=== PATIENT | female | born 1935 | race Caucasian/White ===

== ENCOUNTER 2021-09-08 22:41 | Emergency (ER) | payer MEDICARE, OTHER ==
[~2021-09-08] VITALS: Ht 152.4 cm; Wt 88.6 kg
[2021-09-08] MEDS ORDERED: IV NORMAL SALINE 1000 ML BAG IV ONE (23:15)
[2021-09-08 23:30] LABS: CREATININE 1.3 mg/dL (0.6-1.3); POTASSIUM 4.3 mmol/L (3.5-5.1)
[2021-09-08 23:31] LABS: HEMATOCRIT 34.7 % (31.2-41.9); MEAN CORPUSCULAR HEMOGLOBIN 27.9 uug (24.7-32.8); MEAN CORPUSCULAR VOLUME 84.9 fL (75.5-95.3); PLATELET COUNT (AUTO) 276 K/uL (179-408)
[2021-09-08 23:36] LABS: BILIRUBIN,DIRECT 0.1 mg/dL (0.0-0.2); BILIRUBIN,TOTAL 0.4 mg/dL (0.2-1.0); TOTAL PROTEIN, SERUM 6.7 g/dL (6.4-8.2)
[2021-09-09 00:25] LABS: *BILIRUBIN,URIN NEGATIVE (NEGATIVE); *COLOR,URINE YELLOW (YELLOW); *KETONES,URINE NEGATIVE (NEGATIVE); *UROBILINOGEN,URINE 0.2 E.U./dl (NORMAL); LEUKOCYTE ESTERASE ,URINE NEGATIVE (NEGATIVE); NITRITE, URINE NEGATIVE (NEGATIVE); PH,URINE 6.5 (5.0-8.0); UGLUCOSE NEGATIVE (NEGATIVE)
[2021-09-09 00:27] LABS: *BLOOD, URINE TRACE (NEGATIVE); *CLARITY,URINE HAZY (CLEAR)
[2021-09-09 00:54] LABS: BACTERIA,URINE MODERATE /HPF (NONE SEEN); RBC,URINE 0-3 /HPF (0-3); SQUAMOUS EPITHELIAL CELL,UR MODERATE /HPF (NONE SEEN); WBC,URINE 0-3 /HPF (0-3)
--- NOTE | 2021-09-09 01:30 | NUR ---
Patient refused to wagoner ct scan. Dr Paulson into re eval patient.
[2021-09-09] MEDS ORDERED: VANCOMYCIN 1G/D5W 200 ML PIGGYBACK IV ONE (02:15)
[2021-09-09] MEDS ORDERED: PIPERACILLIN SODIUM/TAZOBACTAM 4.5 G in IV DEXTROSE 5% 50 ML IV SCH (02:15)
--- NOTE | 2021-09-09 02:15 | NUR ---
Patient refused to be admitted , Dr Paulson into speak with patient and spoke to patient son Pedrito.
[2021-09-09] MEDS ORDERED: PIPERACILLIN/TAZO 4.5 GM VIAL IV ONE (02:18)
[2021-09-09] MEDS ORDERED: AMOX-430 PO (02:20)
[2021-09-09] MEDS ORDERED: AZIT250T13 PO (02:22)
[2021-09-09] MEDS ORDERED: VANCOMYCIN IV 200 ML ONE (02:57)
[2021-09-09] MEDS ORDERED: MAGNESIUM HYDROXIDE 30 ML LIQUID UDC PO PRN (03:45)
[2021-09-09] MEDS ORDERED: Z GUARD REMEDY PASTE 57 GM TUBE TOP PRN (03:45)
[2021-09-09] MEDS ORDERED: ACETAMINOPHEN 325 MG TABLET PO PRN (03:45)
[2021-09-09] MEDS ORDERED: IV NS 1000 ML 1,000 ML IV SCH (03:45)
[2021-09-09] MEDS ORDERED: ONDANSETRON 4 MG/2 ML VIAL IV PRN (03:45)
--- NOTE | 2021-09-09 04:56 | NUR ---
Patient discharged to home in stable condition with son taking patient home. Written and verbal after care instructions given. Patient/son verbalizes understanding of instructions. Stressed follow up or return to ER for worsening s/s.
[2021-09-09 04:57] VITALS: BP 135/75
[2021-09-09] MEDS ORDERED: PIPERACILLIN SODIUM/TAZOBACTAM 3.375 G in IV DEXTROSE 5% 50 ML IV SCH (06:00)
== END 2021-09-09 04:57 | disposition left against medical advice (07) ==
LOC: ER 22:43
DX: D72.828 Other elevated white blood cell count (principal); E87.2 Acidosis; R00.0 Tachycardia, unspecified; R94.31 Abnormal electrocardiogram [ECG] [EKG]; J90 Pleural effusion, not elsewhere classified; E11.9 Type 2 diabetes mellitus without complications; Z53.29 Procedure and treatment not carried out because of patient's decision for other reasons
CPT/HCPCS: 36415 ×2; 71045; 80048; 80076; 81001; 83605 ×2; 84484; 85025; 85730; 87040 ×2; 87086; 93005; 96361; 96365; 96366; 96367; 99285; J2543; J3370; J7060; 70030-TC; A4663; C1758; J7030